=== PATIENT | female | born 1950 | race Caucasian/White ===

== ENCOUNTER 2016-11-04 08:00 | Inpatient (IN) | payer OTHER ==
--- NOTE | ~2016-11-04 | PA ---
Unit #: [id number] #: [id number] Patient: GISSEL KNOTT [id number] [facility] [address] [place] [address] [id number] I MR#: [id number] NAME: GISSEL KNOTT ROOM: P122 Age: 65 Sex: F Admission Date: 11/04/2016 : 1950 Date of Assessment: Attending Physician: Reginald Armstrong M.D. Admitting Physician: Reginald Armstrong M.D. PSYCHIATRIC ASSESSMENT DATE OF SERVICE 11/04/2016. IDENTIFYING DATA Ms. Knott is a 65-year-old white female, who is a resident of [place], [place], and was brought to the hospital accompanied by her . CHIEF COMPLAINT "She won't take her medicines." HISTORY OF PRESENT ILLNESS Ms. Knott is a 65-year-old white female, who was brought to the hospital by her in a quite disorganized state and provided most of the information stating "she won't take her medicines. She won't eat. She just sits and stares out. When asked what is wrong, she stated that she wants to and she won't get dressed or shower by herself." I think she is depressed. Her plan is not to eat and not to take her medicines, so she can just . She takes blood pressure medicines, and anxiety and depression medicine and she stated that she stops eating and do not take her medicines, maybe she will have a heart attack and . she does report increasing depression, anxiety, irritability, restlessness, feelings of hopelessness and helplessness, and suicidal ideations and as such, recommendation for inpatient level of care for safety and stabilization was made and the patient was transferred to us. SUBSTANCE ABUSE HISTORY The patient denies any alcohol or drug abuse. PAST PSYCHIATRIC HISTORY The patient has not had any prior inpatient or outpatient psychiatric treatment. Review of the medical records indicate currently she is not active in any treatment program, is not seeing a psychiatrist, not taking any psychotropic medications. PAST MEDICAL HISTORY Hypertension. ALLERGIES Sulfa drugs. PERSONAL AND SOCIAL HISTORY A 65-year-old white female, who reports that she is and lives at Unit #: [id number] #: [id number] Patient: GISSEL KNOTT home with her and has fairly decent social support system. MENTAL STATUS EXAMINATION Elderly white female, who was casually dressed with fair personal hygiene, appears to be in no acute distress or discomfort. She was awake and alert on interaction with intact orientation to time, place, and person. Her mood was anxious and depressed with a congruent affect. Her speech was slow and restricted in content. Her thought processes were disorganized with some looseness of associations and suicidal ideations. Her insight and judgment remain significantly impaired. DIAGNOSTIC IMPRESSION Psychiatric: Major depressive disorder, recurrent, moderate, with psychosis. Medical: Hypertension. Stressors: Moderate psychosocial stressors. TREATMENT PLAN 1. The patient has presented with history of mood disorder, and has been decompensating and will need inpatient hospitalization for safety and stabilization. We will start her back on her home medications. We will adjust the medications and monitor response. 2. Supportive therapy was provided to the patient. 3. Safe, structured, and nourishing environment will be provided. ESTIMATED LENGTH OF STAY 5 to 7 days. ABILITY TO HELP SELF Limited. WILLINGNESS TO HELP SELF The patient appears to be willing to help self. STRENGTHS 1. Communicative. 2. Cooperative. PROBLEMS 1. Chronic dysphoric symptoms. 2. Poor social support system. DISCHARGE CRITERIA This will be contingent upon the patient's ability to show resolution of her depression and psychosis and her ability to stay safe to herself, particularly after discharge from the hospital. Dictated by... Amna Carolina/mariana TD: 11/05/2016 15:18 JOB #: [id number] Unit #: [id number] #: [id number] Patient: GISSEL KNOTT PSYCHIATRIC ASSESSMENT Page 1 of 1 X Reginald Armstrong MD PSYCHIATRIC ASSESSMENT
--- NOTE | ~2016-11-04 | HP ---
Unit #: [id number] #: [id number] Patient: MISTY ASHRAF [id number] [place] [address] [id number] I MR#: [id number] NAME: MISTY ASHRAF. ROOM: P122 Age: 65 Sex: F Admission Date: 11/04/2016 : 1950 Attending Physician: Reginald Armstrong M.D. Admitting Physician: Reginald Armstrong M.D. Primary Care Physician: Primary Care Physician No HISTORY AND PHYSICAL HISTORY OF PRESENT ILLNESS Misty is a 65-year-old female admitted on 11/04/[address] [place] [address] for depression and suicidal ideation. Her reports that she has completely stopped eating or taking any of her medications in an attempt to commit suicide. PAST MEDICAL HISTORY 1. Hypertension. 2. Depression. PAST SURGICAL HISTORY None. ALLERGIES Sulfa drugs. SOCIAL HISTORY Denies tobacco, alcohol or illegal drug use. Currently and living with her and her [id number]. FAMILY HISTORY Noncontributory. REVIEW OF SYSTEMS CONSTITUTIONAL: No fever or chills. HEENT: Denies any sore throat, ear pain or runny nose. CARDIOVASCULAR: Denies chest pain, irregular heart rhythm or palpitations. CHEST: Denies shortness of breath or cough. No hemoptysis. GASTROINTESTINAL: Denies nausea, vomiting, diarrhea or chronic constipation. ENDOCRINE: Denies history of increased thirst or urination. No recent significant weight loss or gain. GENITOURINARY: Denies dysuria, frequency, or hematuria. SKIN: Denies any rashes. HEMATOLOGIC: Denies history of increased bleeding or bruising. MUSCULOSKELETAL: Denies any hot, swollen joints. No generalized muscle pain. NEUROLOGIC: Denies problems with vision or speech. No frequent, severe headaches. No numbness, tingling or weakness in any extremities. Denies loss of bladder or bowel control. CURRENT MEDICATIONS None. Unit #: [id number] #: [id number] Patient: MISTY ASHRAF PHYSICAL EXAMINATION GENERAL: Alert, oriented, in no acute distress. VITAL SIGNS: Blood pressure 159/91, heart rate 125, respirations 16, temperature 98.4. SKIN: Warm and dry without rash or lesion. HEENT: Normocephalic. TMs not viewed. Oral and nasal passages clear. Conjunctivae clear. PERRLA. EOMs intact. NECK: Supple without lymphadenopathy or thyromegaly. HEART: Regular rate and rhythm without murmur. LUNGS: Clear. ABDOMEN: Soft, nontender, without masses or hepatosplenomegaly. : Not done. EXTREMITIES: No evidence of cyanosis, clubbing or edema. Moves all without focal deficit. NEUROLOGICAL: Grossly within normal limits. Cranial Nerves: II: Visual [place] are intact. III, IV AND : Extraocular movements are intact. Pupils are equal, round and reactive to light. V: Facial sensation is grossly normal. VII: Facial movements and expression are normal. VIII: Auditory acuity grossly intact. IX, X: Uvula is midline. Phonation is normal. XI: Patient shrugs shoulders and turns head normally. XII: Tongue protrudes in the midline. Sensory and Motor Function: Sensory and motor sensation is grossly normal. Motor: moves all extremities well. Coordination: Gait is normal. Deep Tendon Reflexes: Intact. IMPRESSION 1. Psychiatric admission. 2. Hypertension. 3. Depression. RECOMMENDATIONS PSYCHIATRIC: Per psychiatrist. MEDICAL: No contraindications to participate in facility's activities. MEDICAL PROGNOSIS Good. MEDICAL CONDITION Stable. Dictated by... Miky Woods/justo TD: 11/04/2016 15:08 JOB #: [id number] Unit #: [id number] #: [id number] Patient: MISTY ASHRAF HISTORY AND PHYSICAL Page 1 of 1 X DENNY BASS APRN HISTORY AND PHYSICAL
--- NOTE | ~2016-11-04 | PN ---
Unit #: [id number] #: [id number] Patient: GISSEL ASHRAF [id number] [facility] [address] [place] [address] [id number] I MR#: [id number] NAME: GISSEL ASHRAF. ROOM: P122 Age: 65 Sex: F Admission Date: 11/04/2016 : 1950 Attending Physician: Reginald Armstrong M.D. Admitting Physician: Reginald Armstrong M.D. Primary Care Physician: Primary Care Physician Marichuy SHELTON PROGRESS NOTES DATE 11/05/2016 DISCUSSION Ms. Ashraf is a 65-year-old white female with mood disorder who was seen today and chart was reviewed and case was discussed with the staff. She was seen to be anxious, withdrawn and quite disorganized and was unable to carry on meaningful conversation and I actually have to ask her if she knows where she was at and she was at and she was able to tell me that she is at [facility]. She was unable to elaborate the reasons of being in the hospital and seemed to be disorganized in her thought, speech and behavior and remained a poor historian. MENTAL STATUS EXAMINATION An elderly white female who was casually dressed with marginal personal hygiene appears to be in no acute distress or discomfort. She was awake and alert with impaired attention and concentration. Her mood was anxious with congruent affect. Her speech was slow and tangential. Her thought processes were disorganized with some looseness of associations and paranoid ideation. Her insight and judgement remains significantly impaired. TREATMENT PLAN 1. We will continue her on her current medications and we will add Remeron 15 mg at bedtime to her Lexapro and we will monitor response and make further adjustments as needed. 2. We will continue to follow up. Dictated by... Amna Carolina/sowmya TD: 11/06/2016 05:08 JOB #: [id number] Unit #: [id number] #: [id number] Patient: GISSEL ASHRAF PROGRESS NOTES Page 1 of 1 X Afaq,Reginald Naylor MD X PROGRESS NOTE
== END 2016-11-05 16:53 | disposition home or self-care (01) | DRG 885 ==
LOC: P1S 10:43
DX: F33.3 Major depressive disorder, recurrent, severe with psychotic symptoms (principal); R45.851 Suicidal ideations; I10 Essential (primary) hypertension; Z88.2 Allergy status to sulfonamides

== ENCOUNTER 2016-12-06 14:51 | Inpatient (IN) | payer OTHER ==
--- NOTE | ~2016-12-06 | CO ---
Unit #: [id number] #: [id number] Patient: MISTY ASHRAF [id number] [place] [address] [id number] I MR#: [id number] NAME: MISTY ASHRAF. ROOM: P256 Age: 66 Sex: F Admission Date: 12/06/2016 : 1950 Attending Physician: Reginald Armstrong M.D. Primary Care Physician: Generic Doctor Not In System Consultation Date: 12/11/2016 CONSULTATION REPORT SUBJECTIVE Misty is a 66-year-old on [address] with depression. She has been in her room much of her admission and refusing to eat and drink. On 12/10/2016, nursing staff reported that her urine output had been very little in the past 24 hours. However, on 12/11/2016, she did have what was described as "good" urine output. She had drank a glass of water and 1 Ensure. Today 12/12/2016, I found Misty lying in bed, reluctant to get up. With the help of staff, I got her up out of bed into a wheelchair, put her in the day room and wrote orders for room lockout and up in a chair for 6 hours every day. She drank 2 glasses of water and 2 Ensures. Stat BMP showed BUN/creatinine 41/0.7 with a sodium 134. ASSESSMENT Continue to get her up in a chair and encourage fluids. Dictated by... Mouna Vegas P.A.-C. for Amna Galaviz/mariana TD: 12/13/2016 02:55 JOB #: [id number] CONSULTATION REPORT Page 1 of 1 X Mouna Vegas CONSULTATION REPORT
--- NOTE | ~2016-12-06 | HP ---
Unit #: [id number] #: [id number] Patient: MISTY ASHRAF [id number] [place] [address] [id number] I MR#: [id number] NAME: MISTY ASHRAF. ROOM: P132 Age: 66 Sex: F Admission Date: 12/06/2016 : 1950 Attending Physician: Reginald Armstrong M.D. Admitting Physician: Reginald Armstrong M.D. Primary Care Physician: Generic Doctor Not In System HISTORY AND PHYSICAL HISTORY OF PRESENT ILLNESS Misty is a 66 year old admitted to [address] [place] [address] with depression and verbalizing wanting to hurt herself. She has had other admissions to this facility. PAST MEDICAL HISTORY High blood pressure. PAST SURGICAL HISTORY Nothing reported. ALLERGIES Sulfa. SOCIAL HISTORY Denies cigarettes, alcohol and illicit drug use. REVIEW OF SYSTEMS She did not answer questions appropriately. There were no reports of nausea, vomiting or diarrhea. She has had no cough or increased temperature. CURRENT MEDICATIONS 1. Milk of Magnesia p.r.n. 2. Maalox p.r.n. 3. Tylenol p.r.n. PHYSICAL EXAMINATION GENERAL: Alert, well-nourished, no apparent distress. VITAL SIGNS: Blood pressure 136/78, heart rate 80, respirations 16, temperature 98.6. WEIGHT: 105. HEIGHT: 5 feet 5 inches. SKIN: Warm and dry without rash or lesion. HEENT: Normocephalic. TMs not viewed. Oral and nasal passages clear. Conjunctivae clear. PERRLA. EOMs intact. NECK: Supple without lymphadenopathy or thyromegaly. HEART: Regular rate and rhythm without murmur. LUNGS: Clear. ABDOMEN: Soft, nontender. : Not done. EXTREMITIES: No evidence of cyanosis, clubbing or edema. Moves all without focal deficit. Unit #: [id number] #: [id number] Patient: MISTY ASHRAF NEUROLOGICAL: Grossly within normal limits. Cranial Nerves: II: Visual [place] are intact. III, IV AND : Extraocular movements are intact. Pupils are equal, round and reactive to light. V: Facial sensation is grossly normal. VII: Facial movements and expression are normal. VIII: Auditory acuity grossly intact. IX, X: Uvula is midline. Phonation is normal. XI: Patient shrugs shoulders and turns head normally. XII: Tongue protrudes in the midline. Sensory and Motor Function: Sensory and motor sensation is grossly normal. Motor: moves all extremities well. Coordination: Gait is normal. Deep Tendon Reflexes: Intact. IMPRESSION Psychiatric admission. RECOMMENDATIONS PSYCHIATRIC: Per psychiatrist. MEDICAL: See no contraindication to participate in facility's activities. MEDICAL PROGNOSIS Good. MEDICAL CONDITION Stable. Dictated by... Mouna Vegas P.A.-C. for Amna Galaviz/justo TD: 12/07/2016 16:05 JOB #: [id number] HISTORY AND PHYSICAL Page 1 of 1 X Mouna Vegas PA X HISTORY AND PHYSICAL
--- NOTE | ~2016-12-06 | PN ---
Unit #: [id number] #: [id number] Patient: GISSEL KNOTT [id number] [facility] [address] [place] [address] [id number] I MR#: [id number] NAME: GISSEL KNOTT. ROOM: P256 Age: 66 Sex: F Admission Date: 12/06/2016 : 1950 Attending Physician: Reginald Armstrong M.D. Admitting Physician: Reginald Armstrong M.D. Primary Care Physician: Generic Doctor Not In System [facility] PROGRESS NOTES DATE December 10, 2016 DISCUSSION Ms. Knott is a 66-year-old white female, who was seen today and chart was reviewed and the case was discussed with the staff. She has been disorganized and was sent out to the emergency room yesterday for dehydration, and then she was transferred back to us. She still has been refusing to eat and drink and as such it has been difficult to be redirected. MENTAL STATUS EXAMINATION An elderly white female, who was casually dressed with fair personal hygiene and appears to be in no acute distress or discomfort. The patient was awake and alert with impaired attention and concentration. Her mood is anxious with a congruent affect. Her speech is slow and restricted in content. Her thought processes are disorganized with some looseness of associations. Her insight and judgment remain significantly impaired. TREATMENT PLAN We will continue her on her current medications and treatment protocol, and will monitor her response to the medications, and make further adjustments as needed. Dictated by... Amna Carolina/gretchen TD: 12/11/2016 13:21 JOB #: [id number] Unit #: [id number] #: [id number] Patient: GISSEL KNOTT [facility] PROGRESS NOTES Page 1 of 1 X Reginald Armstrong MD PROGRESS NOTE
--- NOTE | ~2016-12-06 | PN ---
Unit #: [id number] #: [id number] Patient: GISSEL KNOTT [id number] [facility] [address] [place] [address] [id number] I MR#: [id number] NAME: GISSEL KNOTT. ROOM: P258 Age: 66 Sex: F Admission Date: 12/06/2016 : 1950 Attending Physician: Reginald Armstrong M.D. Admitting Physician: Reginald Armstrong M.D. Primary Care Physician: Generic Doctor Not In System [facility] PROGRESS NOTES DATE OF SERVICE 12/08/2016 DISCUSSION Ms. Knott is a 66-year-old white female who was seen today. Chart was reviewed and case was discussed with the staff. She has been anxious, withdrawn, (1) __ compliant with the treatment recommendations and has been taking the medications and tolerating them fairly well. MENTAL STATUS EXAMINATION An elderly white female who is casually dressed with fair personal hygiene, appears to be in no acute distress or discomfort. The patient was awake and alert with impaired attention and concentration. Her mood is anxious with a congruent affect. Her speech is slow and restricted in content. Her thought processes were disorganized with some looseness of associations. Her insight and judgment remain sightly impaired. TREATMENT PLAN We will continue her on her current medications and treatment protocol. We will monitor her response to the medications and make further adjustments as needed. We will encourage her to show better compliance with medications and treatment recommendations. Dictated by... Reginald Armstrong M.D. IAA/bzg TD: 12/08/2016 12:48 JOB #: [id number] [facility] PROGRESS NOTES Page 1 of 1 X Reginald Armstrong MD X PROGRESS NOTE
--- NOTE | ~2016-12-06 | PN ---
Unit #: [id number] #: [id number] Patient: GISSEL KNOTT [id number] [facility] [address] [place] [address] [id number] MR#: [id number] NAME: GISSEL KNOTT. ROOM: P265 Age: 66 Sex: F Admission Date: 12/06/2016 : 1950 Attending Physician: Reginald Armstrong M.D. Admitting Physician: Reginald Armstrong M.D. Primary Care Physician: Generic Doctor Not In System [facility] PROGRESS NOTES DATE 12/14/2016 DISCUSSION Ms. Knott is a 66-year-old white female who was seen today and chart was reviewed and case was discussed with the staff. She remains withdrawn and seclusive to herself and refuses to cooperate with any part of treatment though she was seen to be awake and alert and oriented laying in her bed and did not appear to be in any acute distress or discomfort, she refuses to take medicine, refuses to eat or drink or participate or cooperate with any part of treatment recommendation and appears that she has developed some significant behavioral problems, attention seeking behavior . MENTAL STATUS EXAMINATION An elderly white female who was casually dressed with fair personal hygiene and appears to be in no acute distress or discomfort. She was awake and alert with impaired attention and concentration. Her mood was anxious with congruent affect. Speech is slow and tangential. Her thought processes were disorganized with some looseness of associations and flight of ideas. Her insight and judgement remains significantly impaired. TREATMENT PLAN 1. Will continue on current medications. Will monitor medications and make further adjustments as needed. 2. Will continue to follow up. Dictated by... Amna Carolina/justo TD: 12/14/2016 16:55 JOB #: [id number] Unit #: [id number] #: [id number] Patient: GISSEL KNOTT [facility] PROGRESS NOTES Page 1 of 1 X Reginald Armstrong MD X PROGRESS NOTE
--- NOTE | ~2016-12-06 | PN ---
Unit #: [id number] #: [id number] Patient: GISSEL KNOTT [id number] [facility] [address] [place] [address] [id number] I MR#: [id number] NAME: GISSEL KNOTT. ROOM: P115 Age: 66 Sex: F Admission Date: 12/06/2016 : 1950 Attending Physician: Reginald Armstrong M.D. Admitting Physician: Reginald Armstrong M.D. Primary Care Physician: Generic Doctor Not In System [facility] PROGRESS NOTES DATE December 07, 2016 DISCUSSION Ms. Knott is a 66-year-old white female, who was seen today and chart was reviewed and the case was discussed with the staff. She was sitting in her bed and was seen to be extremely anxious and shaking, and depressed and showing very negative attitude stating that she cannot eat and cannot take her medication because she cannot swallow and refusing to cooperate with the treatment recommendations, including medication management. MENTAL STATUS EXAMINATION Elderly white female, who was casually dressed with fair personal hygiene and appears to be slight distress and discomfort. She was awake and alert with impaired attention and concentration. Her mood was anxious and depressed with a congruent affect. Her speech is slow and restricted in content, thought blocking, and disorganized, and paranoid ideations. Her insight and judgment remain significantly impaired. TREATMENT PLAN 1. We will continue her on her current medications and treatment protocol, and will monitor her response to the medications, and make further adjustments as needed. 2. We will continue to followup. Dictated by... Amna Carolina/gretchen TD: 12/07/2016 11:46 JOB #: [id number] Unit #: [id number] #: [id number] [facility]: [facility] PROGRESS NOTES Page 1 of 1 X Reginald Armstrong MD PROGRESS NOTE
--- NOTE | ~2016-12-06 | PN ---
Unit #: [id number] #: [id number] Patient: GISSEL KNOTT [id number] [facility] [address] [place] [address] [id number] I MR#: [id number] NAME: GISSEL KNOTT ROOM: P256 Age: 66 Sex: F Admission Date: 12/06/2016 : 1950 Attending Physician: Reginald Armstrong M.D. Admitting Physician: Reginald Armstrong M.D. Primary Care Physician: Generic Doctor Not In System [facility] PROGRESS NOTES DATE 12/09/2016 DISCUSSION Ms. Knott is a 66-year-old white female who was seen today and chart was reviewed and case was discussed with the staff who has serious concerns about patient's level of hydration as she has not eaten or drank in the last 4 days and has been very confused, disorganized, seclusive and would not interact or socialize and once again approached, patient was laying half in the bed with her legs hanging down and her lips chapped and drink has been offered and put right next to her with even a straw and she refused to eat and refusing to drink and had been on one-to-one level of precautions due to her fragile status and medical consultation was requested as well and it was decided that she will be sent out to the emergency room for medical clearance and possibly hydration and she needs some intake and output monitoring. Once medically clear, will continue further psychiatric treatment. Dictated by... Amna Carolina/justo TD: 12/09/2016 18:08 JOB #: [id number] [facility] PROGRESS NOTES Page 1 of 1 X Reginald Armstrong MD PROGRESS NOTE
--- NOTE | ~2016-12-06 | PA ---
Unit #: [id number] #: [id number] Patient: GISSEL KNOTT [id number] [facility] [address] [place] [address] [id number] MR#: [id number] NAME: GISSEL KNOTT. ROOM: P258 Age: 66 Sex: F Admission Date: 12/06/2016 : 1950 Date of Assessment: 12/06/2013 Attending Physician: Reginald Armstrong M.D. Admitting Physician: Reginald Armstrong M.D. Primary Care Physician: Generic Doctor Not In System PSYCHIATRIC ASSESSMENT DATE OF SERVICE 12/06/2016. IDENTIFYING DATA Ms. Knott is a 66-year-old white female, who is a resident of [place], [place], and is known to us from previous encounter and was recently discharged from my care last month and was brought back to the hospital by her . CHIEF COMPLAINT "I've not been able to function very well." HISTORY OF PRESENT ILLNESS Ms. Knott is a 66-year-old white female, who was brought to the hospital by her due to increasing depression and having suicidal ideations, and the patient stated "I've not been able to function very well." The patient reports that she does not take her medications regularly and reports difficulty with sleep and difficulty eating and difficulty doing daily tasks, and she stated "I don't want to have a life like this, for sure I will be tomorrow." The patient was seen to be agitated during assessment and was accompanied by her and two sisters, and stated that the patient is intentionally not eating to and starve herself and reports that he tries to spoon feed her, and the patient attempted to take a knife yesterday to hurt herself, and reports the patient is refusing to take medication and refusing to eat and has not been functioning. She has completed a master's degree in nursing; however, she has been exhibiting very bizarre behavior with increasing depression and almost to an extent of having symptoms of psychosis and has not been eating and has been neglecting personal hygiene and has not been taking the medications regularly and has been very withdrawn and isolative with anhedonia and feelings of hopelessness and helplessness and suicidal ideations and as such, was seen to be a significant threat to herself and recommendation for inpatient level of care for safety and stabilization was made and the patient was transferred to us. SUBSTANCE USE HISTORY The patient denies any history of alcohol or drug abuse. PAST PSYCHIATRIC HISTORY The patient has had a history of inpatient psychiatric hospitalization at [facility]. Review of the medical records indicate that she is supposed to be on Zyprexa and Lexapro, but has not been taking the medications regularly and therefore has not been able to Unit #: [id number] #: [id number] Patient: GISSEL KNOTT show a therapeutic response. PAST MEDICAL HISTORY The patient's medical history is insignificant. ALLERGIES Sulfa drugs. PERSONAL AND SOCIAL HISTORY A 66-year-old white female, who reports that she is and lives at home with her and her brother and has fairly decent social support system. MENTAL STATUS EXAMINATION An elderly white female, who was casually dressed with fair personal hygiene, appears to be in no acute distress or discomfort. She was awake and alert on interaction with intact orientation to time, place, and person. Her mood was anxious and depressed with a congruent affect. Her speech was slow and restricted in content. Her thought processes were disorganized with some looseness of associations and thought blocking and suicidal ideations. Her insight and judgment remain significantly impaired. DIAGNOSTIC IMPRESSION Psychiatric: Major depressive disorder, recurrent, moderate, without psychotic features. Medical: None. Stressors: Moderate psychosocial stressors. TREATMENT PLAN 1. The patient has presented with a history of mood disorder and has been decompensating and will need inpatient hospitalization for safety and stabilization. We will start her back on her home medications and we will adjust the medications and monitor response. 2. Supportive therapy was provided to the patient. 3. Safe, structured, and nourishing environment will be provided. ESTIMATED LENGTH OF STAY 5 to 7 days. ABILITY TO HELP SELF Limited. WILLINGNESS TO HELP SELF The patient appears to be willing to help self. STRENGTHS 1. Communicative. 2. Cooperative. PROBLEMS 1. Chronic dysphoric symptoms. 2. Chronic chemical dependency. 3. Poor social support system. DISCHARGE CRITERIA This will be contingent upon the patient's ability to show resolution of her depression and anxiety and her ability to stay safe to herself and others, particularly after discharge from the hospital. Unit #: [id number] #: [id number] Patient: ANDRIYGISSEL by... Aman Carolina/mariana TD: 12/07/2016 19:29 JOB #: [id number] PSYCHIATRIC ASSESSMENT Page 1 of 1 X Reginald Armstrong MD PSYCHIATRIC ASSESSMENT
--- NOTE | ~2016-12-06 | PN ---
Unit #: [id number] #: [id number] Patient: GISSEL KNOTT [id number] [facility] [address] [place] [address] [id number] MR#: [id number] NAME: GISSEL KNOTT. ROOM: P256 Age: 66 Sex: F Admission Date: 12/06/2016 : 1950 Attending Physician: Reginald Armstrong M.D. Admitting Physician: Reginald Armstrong M.D. Primary Care Physician: Generic Doctor Not In System [facility] PROGRESS NOTES DATE December 11, 2016 DISCUSSION Ms. Knott is a 66-year-old white female, who was seen today and chart was reviewed and the case was discussed with the staff. The patient has been anxious, withdrawn, seclusive to herself, with blunted affect, and refusing to talk to me and refusing to drink and has been getting dehydrated and remains in a catatonic and vegetative state, and has already been sent out to the emergency room once, and the nursing staff informed me that she is not getting much of the output as they are wanting the intake and output. MENTAL STATUS EXAMINATION An elderly white female, who was casually dressed with fair personal hygiene and appears to be in no acute distress or discomfort. The patient was awake and alert with impaired attention and concentration. Her mood was anxious with a congruent affect. Her speech is slow and restricted. Her thought processes are disorganized with some looseness of associations and flight of ideas. Her insight and judgment remain significantly impaired. TREATMENT PLAN We will continue her on her current medications and treatment protocol, and will monitor her response to the medications, and make further adjustments as needed. Dictated by... Amna Carolina/gretchen TD: 12/12/2016 14:16 JOB #: [id number] Unit #: [id number] #: [id number] Patient: GISSEL KNOTT [facility] PROGRESS NOTES Page 1 of 1 X Reginald Armstrong MD PROGRESS NOTE
--- NOTE | ~2016-12-06 | DS ---
Unit #: [id number] #: [id number] Patient: GISSEL KNOTT [id number] [facility] [address] [place] [address] [id number] MR#: [id number] NAME: GISSEL KNOTT. ROOM: P265 Age: 66 Sex: F Admission Date: 12/06/2016 : 1950 Discharge Date: 12/15/2016 Attending Physician: Reginald Armstrong M.D. Primary Care Physician: Generic Doctor Not In System DISCHARGE SUMMARY IDENTIFYING DATA Ms. Knott is a 66-year-old white female, who is a resident of [place], [place], and is known to us from previous encounter and was self-referred to the hospital and was accompanied by her . DISCHARGE DIAGNOSES Psychiatric: Major depressive disorder, recurrent, moderate, without psychotic features. Medical: None. Stressors: Moderate psychosocial stressors. HISTORY OF PRESENT ILLNESS Please see initial psychiatric evaluation for details. PAST PSYCHIATRIC HISTORY Please see initial psychiatric evaluation for details. PAST MEDICAL HISTORY Please see initial psychiatric evaluation for details. HOSPITAL COURSE The patient [facility] and was oriented to the hospital environment. Routine p.r.n. medications were initiated, and she was once again noticed to be very withdrawn, seclusive, refusing to talk, refusing to cooperative with treatment, refusing to eat and drink. Zyprexa and Effexor were initiated, but she was refusing to participate in any form of treatment recommendations and was getting dehydrated. Despite multiple prompting, she was refusing to eat and drink and was seen in medical consultation and was sent out to emergency room, where she was hydrated and transferred back to us as there were no other medical issues or complications. Actually, she has a perfect medical history; however, she was seen to be exhibiting significant behavioral problems as she was seen to be awake and alert and lying comfortably in her bed and did not appear to be in any acute distress or discomfort, but will make statements to the staff that she is not going to participate in treatment and would refuse to eat and drink and refused to cooperate with medications as well and as such, was not seen to be benefitting much from treatment and was denying any suicidal thoughts or intent or plan and was not seen to be meeting criteria for acute inpatient psychiatric hospitalization and as such, it was decided that she will be discharged home and will continue treatment on an outpatient basis. DISCHARGE MEDICATIONS Unit #: [id number] #: [id number] Patient: GISSEL KNOTT Zyprexa 10 mg at bedtime and Effexor XR 75 mg in the morning for depression. DISCHARGE CONDITION Stable. PROGNOSIS Guarded. Dictated by... Amna Carolina/mariana TD: 12/17/2016 18:04 JOB #: [id number] DISCHARGE SUMMARY Page 1 of 1 X Reginald Armstrong MD X DISCHARGE SUMMARY
--- NOTE | ~2016-12-06 | PN ---
Unit #: [id number] #: [id number] Patient: GISSEL ASHRAF [id number] [facility] [address] [place] [address] [id number] MR#: [id number] NAME: GISSEL ASHRAF. ROOM: P265 Age: 66 Sex: F Admission Date: 12/06/2016 : 1950 Attending Physician: Reginald Armstrong M.D. Admitting Physician: Reginald Armstrong M.D. Primary Care Physician: Generic Doctor Not In System [facility] PROGRESS NOTES DATE 12/13/2016 DISCUSSION Ms. Ashraf is a 66-year-old white female who was seen today and chart was reviewed and case was discussed with the staff. She has been anxious, withdrawn and rather seclusive to herself. Meanwhile, she has been cooperative with treatment recommendations as she has been taking the medications and tolerating them fairly well. MENTAL STATUS EXAMINATION An elderly white female who was casually dressed with fair personal hygiene, appears to be in no acute distress or discomfort. She was awake and alert with impaired attention and concentration. Her mood was anxious with congruent affect. She denies any suicidal or homicidal ideation. Her insight and judgement remains significantly impaired. TREATMENT PLAN 1. The patient continues to show significant behavioral problems and refusing to cooperate with treatment recommendations, refusing to eat or (1) and has been showing a lot of manipulative behavior as she can understand, comprehend, make eye contact and in conversation and refuse to eat or drink or even take her medication most of the time and make statement "I am not going to participate in my treatment." As such we will recommend discharge planning home if the patient continues to show similar behavior as she is not benefiting much from current treatment in the hospital. Dictated by... Amna Carolina/sowmya TD: 12/13/2016 21:03 JOB #: [id number] Unit #: [id number] #: [id number] Patient: GISSEL ASHRAF [facility] PROGRESS NOTES Page 1 of 1 X Patti,Reginald ANGULO X PROGRESS NOTE
--- NOTE | ~2016-12-06 | PN ---
Unit #: [id number] #: [id number] Patient: GISSEL KNOTT [id number] [facility] [address] [place] [address] [id number] MR#: [id number] NAME: GISSEL KNOTT ROOM: P256 Age: 66 Sex: F Admission Date: 12/06/2016 : 1950 Attending Physician: Reginald Armstrong M.D. Admitting Physician: Reginald Armstrong M.D. Primary Care Physician: Generic Doctor Not In System [facility] PROGRESS NOTES DATE OF SERVICE: 12/12/2016 SUBJECTIVE Ms. Knott is a 66-year-old white female, who was seen today and chart was reviewed and case was discussed with the staff. She remains withdrawn, seclusive to herself, though she has been interacting better, she still has been MENTAL STATUS EXAMINATION Elderly white female, who was casually dressed with fair personal hygiene, appears to be in no acute distress or discomfort. She was awake and alert with impaired attention and concentration. Her mood was anxious and depressed with a congruent affect. Her speech was slow and restricted in content. Her insight and judgment remain significantly impaired. TREATMENT PLAN 1. We will continue on her current treatment protocol. We will monitor her response and make further adjustments as needed. 2. We will continue to follow up. Dictated by... Amna Carolina/mariana TD: 12/12/2016 17:43 JOB #: [id number] [facility] PROGRESS NOTES Page 1 of 1 X Reginald Armstrong MD PROGRESS NOTE
[2016-12-07 09:46] LABS: BASOPHIL# 0.1 X10e3 (0-0.3); BASOPHIL% 1.3 % (0-2.5); EOSINOPHIL# 0.1 X10e3 (0-0.7); EOSINOPHIL% 1.1 % (0.0-7.0); HEMATOCRIT 48.5 % (35.0-45.0); HEMOGLOBIN 16.1 gm/dL (12.0-16.0); LYMPHOCYTE# 1.2 X10e3 (1.0-3.5); LYMPHOCYTE% 23.8 % (17.0-45.0); MEAN CELL VOLUME 87.7 FL (83-96); MEAN CORPUSCULAR HEMOGLOBIN 29.2 PG (28-34); MEAN CORPUSCULAR HGB CONC 33.3 g/dL (30-36); MEAN PLATELET VOLUME 9.1 FL (6.5-11.5); MONOCYTE# 0.3 X10e3 (0-1.0); MONOCYTE% 6.7 % (3.0-12.0); NEUTROPHIL# 3.3 X10e3 (1.5-7.1); NEUTROPHIL% 67.1 % (40-75); PLATELET COUNT 309 X10e3 (140-420); RED BLOOD COUNT 5.53 X10e (3.90-5.30); WHITE BLOOD COUNT 4.8 X10e3 (4.0-10.5)
[2016-12-07 09:50] LABS: DIFF IND NO
[2016-12-07 09:57] LABS: ALBUMIN SERUM 4.5 g/dL (3.5-5.0); BILIRUBIN,TOTAL 0.9 mg/dL (0.2-2.0); BUN/CREATININE RATIO 38.33; CALCIUM SERUM 9.4 mg/dL (8.4-10.2); CREATININE SERUM 0.6 mg/dL (0.6-1.4); GLOM FILT RATE Estimated 96.3 mL/min (>60); POTASSIUM 4.1 mmol/L (3.5-5.1); PROTEIN TOTAL SERUM 7.6 g/dL (6.0-8.3)
[2016-12-08 10:39] LABS: AMPHETAMINE NEG (NEG); BARBITURATES NEG (NEG); BENZODIAZEPINES NEG (NEG); COCAINE NEG (NEG); MARIJUANA NEG (NEG); OPIATES NEG (NEG); TRICYCLIC ANTIDEPRESSANTS NEG (NEG); U METHADONE NEG (NEG)
[2016-12-08 10:40] LABS: URINE APPEARANCE CLOUDY; URINE BILIRUBIN NEG (NEG); URINE BLOOD NEG (NEG); URINE COLOR YELLOW; URINE GLUCOSE NORM (NORM); URINE KETONE NEG (NEG); URINE LEUKOCYTE ESTERASE NEG (NEG); URINE NITRATE NEG (NEG); URINE PROTEIN 1+ (NEG); URINE UROBILINOGEN NORM (NORM)
[2016-12-08 11:17] LABS: URINE AMORPHOUS SEDIMENT AMORP URATES
[2016-12-08 11:18] LABS: URINE BACTERIA AUWI NEG (NEGATIVE); URINE CRYSTALS CALCIUM OXALATE /[HPF]
[2016-12-12 18:21] LABS: BUN/CREATININE RATIO 58.57; CALCIUM SERUM 9.5 mg/dL (8.4-10.2); CREATININE SERUM 0.7 mg/dL (0.6-1.4); GLOM FILT RATE Estimated 91.6 mL/min (>60); POTASSIUM 3.9 mmol/L (3.5-5.1)
[2016-12-14 12:24] LABS: URINE APPEARANCE CLEAR; URINE BILIRUBIN NEG (NEG); URINE BLOOD NEG (NEG); URINE COLOR YELLOW; URINE GLUCOSE NEG (NEG); URINE KETONE NEG (NEG); URINE LEUKOCYTE ESTERASE 1+ (NEG); URINE NITRATE NEG (NEG); URINE PH 5.5 (5-8); URINE PROTEIN NEG (NEG); URINE SPECIFIC GRAVITY 1.026 (1.003-1.035)
[2016-12-14 12:26] LABS: CULTURE INDICATED? YES; URINE BACTERIA AUWI NEG (NEGATIVE); URINE SQUAMOUS EPITHELIAL CELL OCC /[HPF]
== END 2016-12-15 16:15 | disposition home or self-care (01) | DRG 885 ==
LOC: P1S 16:32 → P2L 16:32 → P1S 17:37 → P2L 12-07 17:27
PROVIDERS: Psychiatry & Neurology Psychiatry
DX: F33.1 Major depressive disorder, recurrent, moderate (principal); F50.89 Other specified eating disorder; Z88.2 Allergy status to sulfonamides
CPT/HCPCS: 80048; 80053; 80307; 81003; 85025; 87086